=== PATIENT | male | born 1985 | race Caucasian/White ===

== ENCOUNTER 2022-12-22 20:40 | Emergency (ER) | payer MEDICAID ==
[~2022-12-22] VITALS: Ht 172.7 cm; Wt 86.2 kg
[2022-12-22 20:49] VITALS: BP_SYST 124
--- NOTE | 2022-12-22 21:15 | NUR ---
No beds available. Pt visibly frustrated. Notified Dr. Justice. Received verbal order to start normal saline bolus 1 liter iv. Pt instructed to continue to hold nose securely to slow down/stop bleeding.
[2022-12-22] MEDS ORDERED: NACL 0.9% 1,000 ML IV ONE (21:17)
[2022-12-22 22:03] LABS: BASOPHILS % (AUTO) 0.4 % (0.0-2.0); EOSINOPHILS % (AUTO) 0.4 % (0.0-4.0); HEMATOCRIT 34.9 % (36-54); HEMOGLOBIN 11.7 g/dL (14.0-18.0); LYMPHOCYTES # (AUTO) 2.7 K/uL (1.0-5.5); LYMPHOCYTES % (AUTO) 24.4 % (20.5-51.5); MEAN CORPUSCULAR HEMOGLOBIN 31 pg (27-31); MEAN CORPUSCULAR HGB CONC 34 % (32-36); MEAN CORPUSCULAR VOLUME 92 fL (79.0-98.0); MONOCYTES # (AUTO) 0.6 K/uL (0.0-1.0); MONOCYTES % (AUTO) 5.7 % (1.7-9.3); NEUTROPHILS # (AUTO) 7.6 K/uL (1.8-7.7); NEUTROPHILS % (AUTO) 69.1 % (40.0-70.0); PLATELET COUNT (AUTO) 449 K/uL (130-430); RED BLOOD CELL COUNT(AUTO) 3.79 MIL/uL (4.2-6.2)
--- NOTE | 2022-12-22 22:33 | NUR ---
Pt reports 10/10 to face; however, no moaning. no facial grimace noted. Speaking calmly. Hr decreased after normal saline bolus. See vital signs.
--- NOTE | 2022-12-22 22:35 | NUR ---
No active bleeding noted at this time.
--- NOTE | 2022-12-22 22:57 | NUR ---
Pt finally placed in hallway bed.
[2022-12-22 23:05] VITALS: BP_SYST 129
[2022-12-22] MEDS ORDERED: BACI15OI13 TP (23:11)
[2022-12-22] MEDS ORDERED: OXYM15MI9 NS (23:11)
--- NOTE | 2022-12-22 23:19 | NUR ---
Patient given written and verbal discharge instructions and verbalizes understanding. ER MD discussed with patient the results and treatment provided. Patient in stable condition. ID arm band removed. IV catheter removed intact and dressing applied, no active bleeding. Rx of Bacitracin zinc and oxymetazoline (afrin) given. Patient educated on pain management and to follow up with PMD. Opportunity for questions provided and answered.
== END 2022-12-22 23:19 | disposition home or self-care (01) ==
LOC: SED 20:40
DX: R55 Syncope and collapse (principal); Z79.899 Other long term (current) drug therapy
CPT/HCPCS: 99283; 96360; 85025; 36415; J7030